=== PATIENT | male | born 1940 | race Caucasian/White ===

== ENCOUNTER 2021-07-15 07:34 | Emergency (ER) | payer OTHER, MEDICARE ==
[~2021-07-15] VITALS: Ht 182.9 cm; Wt 72.6 kg
[2021-07-15 08:37] LABS: ABSOLUTE NEUTROPHILS 3.1 thou/uL (1.4-8.2); BASOPHILS 0.8 % (0.0-2.0); EOSINOPHILS 3.8 % (0.0-3.0); HEMATOCRIT 32.4 % (42.0-52.0); HEMOGLOBIN 10.3 gm/dL (14.0-18.0); LYMPHOCYTES 10.2 % (24.0-44.0); MCH 27.8 pg (26.0-34.0); MCHC 31.9 g/dL (28.0-37.0); MCV 86.9 fL (80.0-100.0); MONOCYTES 8.1 % (1.0-8.0); PLATELET COUNT 146 thou/uL (150-400); POLYS 77.1 % (36.0-66.0); RBC 3.72 mil/uL (4.50-6.00); RDW 14.9 % (10.5-14.5)
[2021-07-15 08:46] LABS: CALCIUM 9.1 mg/dL (8.5-10.1); CREATININE 1.7 mg/dL (0.7-1.3)
[2021-07-15 09:32] LABS: URINE BILIRUBIN NEGATIVE (Negative); URINE BLOOD NEGATIVE (Negative); URINE CLARITY CLEAR; URINE COLOR YELLOW; URINE GLUCOSE-RANDOM* NEGATIVE (Negative); URINE KETONES TRACE (Negative); URINE LEUKOCYTES-REFLEX NEGATIVE (Negative); URINE NITRITE-REFLEX NEGATIVE (Negative); URINE PROTEIN (DIPSTICK) NEGATIVE (Negative); URINE SPECIFIC GRAVITY >= 1.030 (1.005-1.035)
[2021-07-15 11:41] VITALS: BP 132/79
--- NOTE | 2021-07-15 15:46 | EKG ---
[place] [address] [facility] [place] [address] ELECTROCARDIOGRAM REPORT Name: JOANNA SONG Room #: DEP Odin#: [id number] Admission: 07/15/21 Attend Phys: Discharge: 07/15/21 Date of : 44 Report #: [id number] [facility] ED Test Date: 2021-07-15 Test Time: 07:53:28 Pat Name: JOANNA SONG Department: Room: Gender: M Finish Sander: JAM : 1940 Requested By: Eleanor Conte Order Number: [id number] MD: Sean Morton Measurements Intervals [place] Rate: 80 P: 0 ME: 158 QRS: 177 QRSD: 181 T: 72 QT: 454 QTc: 524 Interpretive Statements Ventricular-paced rhythm No further analysis attempted due to paced rhythm No previous ECG available for comparison Electronically Signed On 07-15-2021 15:46:01 CDT by Sean Morton [email or web address] <ELECTRONICALLY SIGNED> By: Sean Morton MD, [facility] 07/15/21 1546 [id number] Sean Morton MD, FACC /EPI
== END 2021-07-15 11:45 ==
LOC: ER 07:34
PROVIDERS: Emergency Medicine
DX: F03.91 Unspecified dementia, unspecified severity, with behavioral disturbance (principal); Z20.822 Contact with and (suspected) exposure to COVID-19

== ENCOUNTER 2021-07-15 12:24 | Inpatient (IN) | payer OTHER, MEDICARE ==
[~2021-07-15] VITALS: Ht 167.6 cm; Wt 70.3 kg
[2021-07-15 13:08] VITALS: BP 136/72
[2021-07-15 13:13] LABS: CHOLESTEROL 132 mg/dL (<200); HDL CHOLESTEROL 30 mg/dL (>40); LDL CHOLESTEROL 77 mg/dL (<100); TC:HDL 4.4 Ratio (Not establshd); TRIGLYCERIDE 128 mg/dL (<150); VLDL 26 mg/dL (<40)
--- NOTE | 2021-07-15 14:02 | NUR ---
NEW ADMISSION HERE FROM [facility], PATIENT WAS AGGRESSSIVE TO STAFF. HITTING, KICKING BREAKING FURNITURE, I TALKED WITH PATIENTS NAPOLEON WHO IS THE DPOA. SHE STATES PATIENT HAS BEEN AGGRESSIVE WAS DIAGNOSED WITH DEMENTIA 6 YEARS AGO. 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 PATIENTS STATES PATIENT HAS BEEN AT THE FACILTY FOR 3 MONTHS. SHE STATES HE WAS ON HOSPICE AT THE FACILITY. PATIENT HAS CARDIAC ISSUES HE HAS A PACEMAKER AND DEFIBULATOR. HE ALSO HAS STAGE 3 KIDNEY DISEASE; WHEN TRYING TO PUT PATIENT BRACELETS ON HE BECAME AGGRESSIVE. DR FARFAN ASSISTED ME HOLDING PATIENTS ARMS. PATIENT UNABLE TO TELL ME ABOUT SI/HI/AH/VH AT PRESENT DUE TO DEMENTIA. PATIENTS LUNGS CLEAR PATIENTS ABDOMEN SOFT BOWEL SOUNDS PRESENT. PATIENT ALERT TO SELF ONLY I HAD TO CALL HIS FOR MY ADMISSION QUESTIONS. WILL CONTINUE TO MONITOR PATIENT FOR SAFETY AND BEHAVIORS.
[2021-07-15 19:29] VITALS: BP 133/78
[2021-07-15 21:34] VITALS: BP 133/78
[2021-07-15 23:06] LABS: GLYCOHEMOGLOBIN (HGB A1C) 5.8 % (4.8-5.6)
--- NOTE | 2021-07-16 03:45 | NUR ---
PATIENT CARE WAS RESUMED AT 1900. HE IS ALERT AND WAS SITTING IN THE DININIG AREAS. HE IS ABLE TO VERBALIZE NEEDS. BS ACTIVE X4 QUAD. HE IS CONTININET OF BLADDER. LUNGS ARE CLEAR BS ACTIVE X4 QUAD. HE DENIES PAINS.AVH/SI/HI. MODERATE ASSIT WITH CARE. HE AMBULATES. [id number] CHECHS IS ONGOING AT THIS TIME.BED IS LOW, LOCKED AND ALARMED. CONTINUE CARE AND MONITR
[2021-07-16 06:19] LABS: HEMATOCRIT 31.2 % (42.0-52.0); HEMOGLOBIN 10.3 gm/dL (14.0-18.0); MCH 28.6 pg (26.0-34.0); MCV 86.8 fL (80.0-100.0); RBC 3.59 mil/uL (4.50-6.00); RDW 15.2 % (10.5-14.5); WBC 4.2 thou/uL (4.0-11.0)
[2021-07-16 06:47] LABS: CALCIUM 8.7 mg/dL (8.5-10.1); CREATININE 1.1 mg/dL (0.7-1.3); MAGNESIUM 2.2 mg/dL (1.8-2.4); POTASSIUM 3.8 mmol/L (3.5-5.1)
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
[2021-07-16 11:05] VITALS: BP 147/90
[2021-07-16 11:09] VITALS: BP 147/90
--- NOTE | 2021-07-16 13:00 | NUR ---
RESUMMED CARE FROM OVERNIGHT SHIFT THIS AM, PATIENT SITTING IN DAY ROOM QUIET. PATIENT ATE BREAKFAST TOOK MEDIATION WITHOUT INCIDENCE. PATIENT ALERT TO SELF ONLY, PATIENT UNABLE TO TO TELL ME ABOUT SI/HI/AH/VH AT PRESENT DUE TO COGNITIVE DISORDER. PATIENTS ABDOMEN SOFT BOWEL SOUNDS PRESENT, PATIENTS LUNGS CLEAR. PATIENT LATER IN THE AM STARTED YELLING BANGING ON THE TABLE NOT ABLE TO BE REDIRECTED. DR FARFAN ORDERED HALDOL 5 MG IM, ATIVAN 2 MG IM TO HELP PATIENT TO CALM DOWN. PATIENT CALMED DOWN SLEEPING IN DAY ROOM IN LIANA CHAIR. WILL CONTINUE TO MONITOR PATIENT FOR SAFETY AND BEHAVIORS.
[2021-07-16 19:53] VITALS: BP 114/71
--- NOTE | 2021-07-17 03:18 | NUR ---
PATIENT HAS A GOOD EVENING. HE IS AAOX1. HE WAS ABLE TO TAKE HIS MEDICATIONS. DURING THIS SHIFT HE HAS NOT EXHIBITED ANY AGGRESSION. ALL SAFETY PRECAUTIONS ARE IN PLACE. HE SLEPT MOST OF THE NIGHT IN HIS OWN ROOM. DENIES PAIN. VSS. WILL CONTINUE TO MONITOR.
[2021-07-17 07:32] VITALS: BP 113/61
[2021-07-17 07:46] VITALS: BP 113/61
--- NOTE | 2021-07-17 11:39 | NUR ---
PATIENT CARE ASSUMED AT 0700 - IN ROOM SLEEPING WHEN ARRIVING ON UNIT. ATTEMPTED TO AWAKEN AND RESISTIVE. DID TAKE MEDICATIONS WHOLE WITH WATER WHEN ADMINISTERED. REFUSED TO GET UP FOR BREAKFAST - STILL SLEEPING AT 11:45. RESPONDS WITH NOD WHEN ADDRESSING HIM. WILL CONTINUE TO MON ITOR AND ENCOURAGE TO GET UP FOR MEALS. ADVISED DR. GOINS OF PATIENT STATUS. VITALS WERE STABLE AND WITHIN NORM WHEN TAKEN THIS MORNING.
--- NOTE | 2021-07-17 11:50 | NUR ---
11:00AM - Phone call to [facility], Celina Michael - Mrs. Michael provided information pertaining to pt. Mrs. Michael indicated pt. does not have a hx of alcohol use, substance abuse or violence. Pt. has a sister who resides in [place], [place]. The two are close and the sister has visited with the pt. several times while in the facility. The pt. has 4 children and 8 grandchildren. The children and grandchildren are also supportive of the pt. The pt. graduated from high school and has a BS from [employer]. 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 The pt. was active in congregation and identifies as Worship. The pt. was in the [employer] during [place]. He was called to duty to [place]. Mrs. Michael is hoping the pt's aggression towards staff will be addressed in order for the pt. to be able to return to [facility]. Mrs. Michael states not seeing this aggression directed towards her. However, she is aware that the pt. would not allow staff to clean or feed him. Mrs. Michael expressed concerns that the pt's aggression will not be able to be addressed through medication which will result in the pt. not being able to return to [facility] care.
--- NOTE | 2021-07-17 14:03 | NUR ---
PATIENT CARE ASSUMED AT 0700 - SLEPT THROUGH BREAKFAST AND LUNCH. AWOKE AND AMBULATED TO DINING AREA. WAS CALM AND REDIRECTABLE - ATE LUNCH WE HAD PUT ASIDE INDEPENDENTLY. COMPLETED 50 PERCENT OF THE MEAL. PATIENT HAS BEEN SITTING QUIETLY IN DINING AREA. PATIENT DID TAKE MORNING MEDICATIONS AT BEDSIE WHEN APPROACHED. HAS NO DIFFICULTY SWALLOWING WHOLE WITH WATER. ALERT TO SELF. DOES NOT RESPOND TO MANY QUESTIONS ADDRESSED TO HIM. WILL CONTINUE TO MONITOR PATIENT FOR SAFETY AND ADDRESS ANY CONCERNS OR CHANGES IN BEHAVIOR.
--- NOTE | 2021-07-17 15:04 | NUR ---
In-person with pt. Pt. had food but did not eat much of it. The pt. was able to tell the SW that he was born and raised in [place], [place]. When asked what types of things he likes to do, the pt. responded that he did not know. The pt. seemed to be confused. The pt. was pleasant when speaking to the SW.
[2021-07-17 20:17] VITALS: BP 122/77
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
--- NOTE | 2021-07-18 03:26 | NUR ---
DURING THIS SHIFT PATIENT HAS BEEN CALM AND COOPERATIVE. HE TOOK HIS MEDICATION ORDERED. HE IS AAOX2. SAT QUIETLY IN THE COMMON AREA FOR A BIT AND WATCHED TV. SLEPT WELL THROUGHOUT THE EVENING. DENIED PAIN OR NEEDS. NO S/S OF DISTRESS NOTED. WILL CONTINUE TO MONITOR.
[2021-07-18 10:44] VITALS: BP 143/87
--- NOTE | 2021-07-18 12:48 | NUR ---
HAS BEEN VISIBLE ON UNIT SITTING QUIETLY IN DAYROOM-GAIT STEADY WITHOUT Assisitve devices. WAS INCONTINET OF SMALL AMOUNT OF BM-COOPERATIVE WITH ALLOWING STAFF TO COMPLETE PERINEAL CARE WITHOUT PHYSICAL RESISTANCE
--- NOTE | 2021-07-18 15:54 | NUR ---
CONTINUES QUIET AND COOPERATIVE-COMPLIENT WITH TAKING SCHEDULE MEDICATIONS-ABLE TO VERBALIZE NEEDS TO NURSING STAFF IN AN APPROPRIATE MANNER
[2021-07-18 19:50] VITALS: BP 134/71
[2021-07-18 21:00] VITALS: BP 134/71
[2021-07-19 05:05] VITALS: BP 134/71
--- NOTE | 2021-07-19 05:09 | NUR ---
PATIENT CARE CARE RESUMED [id number]. HE IS ALERT AND WA SITTING A THE [place] AREA. HE IS CONTINENT OF BOWEL AND BLADDER. DENIES PAINS AND SBS ACTIVE X4 QUADS. HE IS ABLE TO VERBALISE HIS CONCERN. Q12 MINUTES CHECK IN PLACE. HE REFUSED HIS ,MED AND PRN WAS GIVEN AND NURSE. DENIES PAINS/SI/AVH AND HI TO INDIVIDUAL WAS NOTED. HE WAS AGRESSIVE AND ANXIOUS THIS SHIFT. CONTINUE CARE AND MONITOR. . YELLOW SOCKS ON. CONT CARE
[2021-07-19 09:37] VITALS: BP 149/68
--- NOTE | 2021-07-19 13:25 | NUR ---
Alert and orientated to name only. Confused speech. Denies SI/HI. Ambulates with regular, steady gait. Calm and cooperative. Breath sounds clear. Reg HR auscultated. Color pink with brisk capillary refill and palpable peripheral pulses. Independent with voiding. Active bowel sounds over soft, flat abdomen. Currently participating in group without s/o distress.
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
[2021-07-19 15:37] VITALS: BP 110/68
[2021-07-19 16:40] VITALS: BP 120/72
[2021-07-19 19:00] VITALS: BP 119/74
[2021-07-19 20:00] VITALS: BP 119/74
--- NOTE | 2021-07-20 03:20 | NUR ---
PATIENT CARE WAS RESUME AT 1900 HE IS AWAKE AND ABLE TO VERBALIZE SOME NEEDS. HE DENIES PAINS AND HE IS CONTINENT OF BOWEL AND BLADDER. TOOK HIS MEDS WHOLE AND CT SCAN WAS DONE NO NEW OR ACUTE FINDINGS NOTED. HE IS SLEEPING IN BED AT THIS TIME. BED IS LOW, LOCKED AND ALARMED. [id number] CHECKS ONGOING CONTINUE CARE
[2021-07-20 09:39] VITALS: BP 140/86
--- NOTE | 2021-07-20 15:11 | NUR ---
Alert and orientated to name and knows he is in [place]. Calm, cooperative and compliant with meds. Denies SI/HI. Breath sounds clear. Reg HR auscultated. Color pink with brisk capillary refill and palpable peripheral pulses. No edema noted. Incontinent of yellow urine. Active bowel sounds over soft, flat abdomen. Small laceration in R eyebrow healing w/o s/o infection. Ambulating in unit with slow, steady gait. Offering walker, compliant at times. Shower done and hair shampooed. called for update, appropriate questions and concerns.
[2021-07-20 19:52] VITALS: BP 140/82
--- NOTE | 2021-07-21 03:23 | NUR ---
07-20-21 CARE TRANSFERRED 1900 OBSERVED PT SITTING IN DAY ROOM ON COUCH. LATER PT AAOX1, VSS, RR EVEN AND NONLABORED ON RA. PT DENIES SI/HI AND PAIN. PT PRESENTS CALM AND COOPERATIVE. DURING MEDICATION ADMIN PT HAD NO DIFFICULTIES TAKING PILLS WHOLE WITH WATER. LATER PT ASSISTED TO BATHROOM AND BED, BED WAS ADJUSTED FOR COMFORT. PT REMAINED CALM DURING CARES. PT WILL BE CONTINUE MONIOTR PER [facility] PROTOCOL.
[2021-07-21 11:05] VITALS: BP 121/58
--- NOTE | 2021-07-21 15:29 | NUR ---
PATIENT HAS BEEN UP, AND OUT ON THE UNIT, AMBULATE WITH ASSIST OF STANDARD WALKER, GAIT SLIGHTLY UNSTEADY. PATIENT IS ALERT, AND ORIENTED X 1, HE IS FORGETFUL, AND VERY CONFUSED. PATIENT TOOK ALL MEDICATION WHOLE IN PUDDING WITHOUT DIFFICULTY. PATIENT REQUIRES STAFF ASSIST/CUE WITH FEEDING, APPETITE GOOD, EAST 50%-76%MEALS. PATIENT SITS IN GROUP, NO CLUE OF WHAT IS GOING ON. PATIENT DENIES SUICIDAL IDEATION, NOT ABLE TO APPROPRIATELY RESPOND TO FURTHER ASSESSMENT QUESTIONS DUE TO COGNITIVE IMPAIRMENT, NO SIGN OF PHYSICAL PAIN NOTED AT THIS TIME. AFFECT IS FLAT, MOOD IS EUTHYMIC. NO SIGN OF ACUTE DISTRESS NOTED AT THIS TIME, FALL PRECAUTIONS IN, WILL MONITOR FOR SAFETY.
--- NOTE | 2021-07-21 15:32 | NUR ---
07-21-2021--1500--Call returned to [facility] ([phone]) to Sarah. She requested updated information for patient. Faxed notes from carleen and physician to her at [phone].
[2021-07-21 19:20] VITALS: BP 122/82
--- NOTE | 2021-07-22 04:49 | NUR ---
07-21-21 CARE TRANSFERRED 1900 OBSERVED PT SITTING IN DAY ROOM. LATER PT AAOX1, VSS, RR EVEN AND NONLABORED ON RA. PT DENIES SI/HI AND PAIN AND OBSERVED NO BEHAVIORS. PT HAS BEEN CALM AND COOPERATIVE DURING CARES. DURING MEDICATION ADMIN PT HAD NO DIFFICULTIES TAKING WHOLE WITH WATER, PT DRANK 480ML. PT BED WAS ADJUSTED FOR COMFORT, BED LOCKED, LOW, AND ALARM SET. PT WILL CONTINUE TO BE MONITOR PER [facility] PROTOCOL.
[2021-07-22 05:35] LABS: HEMATOCRIT 30.6 % (42.0-52.0); MCH 28.5 pg (26.0-34.0); MCHC 32.8 g/dL (28.0-37.0); RBC 3.51 mil/uL (4.50-6.00); RDW 14.9 % (10.5-14.5); WBC 3.1 thou/uL (4.0-11.0)
[2021-07-22 06:09] LABS: CALCIUM 8.4 mg/dL (8.5-10.1); CREATININE 1.2 mg/dL (0.7-1.3); POTASSIUM 3.7 mmol/L (3.5-5.1)
--- NOTE | 2021-07-22 12:05 | NUR ---
RT Progress Note- Raffaele has been present in the milieu each day since his admission. He has also been present in the majority of recreation therapy groups though his participation has been minimal d/t poor attention and cognitive functioning. Raffaele wanders throughout the day room and hallways and has little insight to programming occurence. He is friendly overall and is observed to sit with patients and speak with them, often comforting them if he percieves them to be upset. He has not shown aggression during interaction with RT team thus far. AUTO POLISHER will encourage continued participation and improved presence in group.
[2021-07-22 15:57] VITALS: BP 125/80
[2021-07-22 15:58] VITALS: BP 125/80
[2021-07-22 15:59] VITALS: BP 125/80
--- NOTE | 2021-07-22 16:20 | NUR ---
Patient care resummed, patient up and in the dayroom in [place] relaxed next to a fellow patient. Patient presented to SUPPLY CHAIN COORDINATOR A&0*1 (self), abdomen is soft with bowel sounds present, lung sounds are clear but slightly diminished. Patient has bruising to the Right eye from a fall a few days prior, alongside a 0.5cm laceration on the Right eyebrow and bruising to the nose. Patient refused all morning medications after 2 attempts from SUPPLY CHAIN COORDINATOR. A forced IM was given per Orders. Pt was medication compliant for the rest of the day. Pt was irritable and angry this morning but has then calmed down. Patient has been in the dayroom particapting in groups and meals without complications. Will continue to monitior patient for safety and behaviors. Fall preventions are in place at this time.
[2021-07-22 19:54] VITALS: BP 144/120
--- NOTE | 2021-07-22 22:44 | NUR ---
Assumed care on 07/22/21 @ 1900, in bed, awake alert and oriented x1 to self only. Cooperative with assessment and compliant with medications, taking meds whole with water. VSS HRRR, Lungs CTA, ABD N x 4q over a soft round abdomen. High fall risk, fall precautions in place, chair alarm in place when up and bed alarm on when in bed, bed in low position. Denies SI, does not respond to remainder of mental health questions. Will continue to monitor for comfort and safety as per unit protocol.
--- NOTE | 2021-07-23 09:21 | NUR ---
07-23-2021--08--Call from Sarah from patient's facility. I had faxed updates last night to her but wrong number was given to me ([phone]). New number provided in message ([phone]). I refaxed updates and got a form stating "no response". Will try again later today.
[2021-07-23 10:22] VITALS: BP 105/61
--- NOTE | 2021-07-23 11:02 | NUR ---
PATIENT CARE ASSUMED AT 0700, PATIENT IN BED SLEEPING, PATIENT WET THE BED WITH URINE, GOT HIM CLEAN UP AND READY FOR BREAKEAT, HE TOOK MEDICATION WHOLE, CALM WITH AND PLEASANT WITH CARE, ACTIVE BOWEL SOUND WITH SOFT, BREATH SOUND CLEAR, NO EDEMA NOTED, PATIENT IS INCONTINENT OF BLADDER AND BOWEL, HE ABULATE WITH A WALKER, PATIENT IS ALERT AND ORIENTED TO SELF, FALL PRECAUTION IN PLACE, NO BEHAVIOR CHANGE FOR NOW AND NO SI/HI OBSEVERED. WILL CONTINUE TO MONITOR PATIENT FOR SAFETY AND BEHAVIOR
--- NOTE | 2021-07-23 14:24 | NUR ---
07-23-2021--1400--Call from Val Beth (patient's daughter--[phone]) stating that her mother was having difficulty getting information on her . She states she called the RN this AM and left her number and no one has called her back. I talked to the RN who states she has been gone for a week and wasn't familiar with the patient and so she was waiting to see him today to call back. I asked that next time she can maybe let me know or Jesika so we can fill her in or we can call the family member. The daughter also said that [facility] had asked for information or an update on the patient. I explained that I tried four different toimes to different numbers and my fax sheet stated no response which meant the fax wasn't on or they were all wrong numbers. I told her I would call Sarah from [facility] and try to get a good number for the fax. I gave her the little information available from team meeting. I also called her after group afternoon and gave her an update on his participation which was very good. (See group note).
--- NOTE | 2021-07-23 14:32 | NUR ---
07-23-2021--1430--Message left by Mrs. Gaviota Michael with her phone stephanie ([phone]). I returned her call. She states she talked to Gayatri who called the back. Gaviota states she had a difficult time understandong her due to her accent. I advised her oif this happens again to call me an OI will get the information or I will have Jesika (DON) call if it's information I can't explain due to not being a nurse or doctor. She was very appreciative. I told her to call if she had any concerns. She stated she was concerned that he had gotten shots because [facility] won't give shots so they won't take him back. I told her he would be changed to oral meds if possible and won't leave needoing shots.
[2021-07-23 20:29] VITALS: BP 122/74
--- NOTE | 2021-07-23 23:18 | NUR ---
At onset of pool cleaner pt was pacing on the unit. Pt was found sitting in a peer's room while the peer was resting in bed. Pt was redirected out of the room. Pt was compliant with PO medication. Pt has very dry legs and was scratching his legs and making them bleed. RN applied lotion and bandaids to bilateral lower legs. Pt was cooperative and appreciative of this. Later in the evening pt started wandering more and pushed a chair completely around the unit. Pt placed this chair near the unit exit. Pt attempted to push the exit open several times. When told the door was locked and asked to stop, pt responded irritably. Pt would not redirect and pt started to push the door harder. RN adminstered 7.5mg IM Zyprexa at approx 2210. After injection pt was able to calm down. Pt's speech was nonsensical at times. Pt was alert and oriented only to self. Pt could not state the date or where he is at. Pt was focused on finding something on the unit, but was unable to voice what he was looking for. Fall precautions are in place for pt, but pt ambulates independently and often times is not organized enough to remember to use a walker. Will continue to monitor.
[2021-07-24 10:16] VITALS: BP 107/75
--- NOTE | 2021-07-24 10:28 | NUR ---
07-24-2021--1030--Stopped to talk to patient in the day room this AM. Patient was having difficulty "making word sense" even when asking "How are you?". I let him talk for a few minutes about nothing. Will attempt conversation later in the day. 07-24-2021--1044--Call to Gaviota Michael, patient's . She stated most of her questions were answered yesterday. She stated she was most concerned about whether he had any "breakdowns" or agitation when she spoke to the RN. I told her I had seen him this AM in groups and he participated. I explained what the format was for the weekends as she wanted to know if he would have groups this weekend. I told her she was welcome to call back and talk to the RN for infomation or she could call me later if needbe for additional information. sounds particularly "fragile" and close to tears when one talks to her. Added time may need to be taken by staff when she calls for information. I will attempt to call her daily (when I am working) to determine if she has gotten the information she is seeking.
--- NOTE | 2021-07-24 10:42 | NUR ---
PATIENT CARE ASSUMED AM, PATIENT STILL IN BED SLEEPING, GOT PATIENT UP DUE TO INCONTINENT SLEEPING ON HIS URINE, GOT HIM CLEARED UP, ALERT TO SELF ONLY, CALM WITH TREATMENT, BOWEL SOUND ACTIVE WITH SOFT ABDOMEN, SKIN INTACT, NO EDEMA NOTED, BREATH SOUND CLEAR, PATIENT IS CONFUSED AND NEED HELP TO SET UP BREAKFAST, TOOK MEDICATION WHOLE WITH OATMEAL, PACES SOMETIMES IN THE VANN WAY AND COMMON AREA, NO SI/HI OBSERVED, NOT ABLE TO VEBERLIZE NEED, FALL PRECAUTION IN PLACE. PATIENT IS INCONTINENT, AMBULATE WITH WALKER. WILL CONTINUE TO MONITOR PATIENT FOR SAFETY AND BEHAVIOR.
[2021-07-24 19:23] VITALS: BP 112/57
--- NOTE | 2021-07-25 00:21 | NUR ---
At onset of shift pt was sitting in the day room, sitting at a table with staff. This shift pt was calm and pleasant when seated with staff. Pt was pleasant and cooperative with RN completeing the assessment and auscultating lungs, heart and abdomen. When RN came back to pt to offer him his medication crushed in pudding, pt told RN to "get back, no, no, no." RN offered pt his medication in pill form with water and pt again refused. RN explained to pt that he would need an injection if he refused his pills. Pt received 7.5mg Zyprexa IM. Staff had to hold patient still and pt yelled. Pt smiled and laughed after the injection, told staff that he was going to fabian them. Pt was then helped into bed. Fall precautions are in place. Will continue to monitor.
[2021-07-25 06:54] VITALS: BP 133/80
--- NOTE | 2021-07-25 11:41 | NUR ---
CARE ASSUMED AT 0700, PATIENT SITTING ON A CHAIR IN THE COMMON AREA, ALERT TO SELF ONLY, TOOK MEDICATION WHOLE, CALM THIS MORNING, ACTIVE BOWEL SOUND WITH SOFT AND ROUNDED ABDOMEN, BREATH SOUND CLEAR, REGULAR HR AUSCULTATED, COLOR PINK WITH BRISK CAPILLARY REFILL AND PAIPABLE PERIPHERAL PULSES, NO EDEMA NOTED, PACE IN THE DAY ROOM, TRY PUSHING CHAIRS AROUND BUT ABLE TO BE REDIRECTED, PATIENT AMBULATE ON A WALKER AND HE IS INCONTINENT AT NIGHT. NO SI/HI BEHAVIOR OBSERVED, FALL PRECAUTION IN PLACE
--- NOTE | 2021-07-26 03:02 | NUR ---
PATIENT CARE WAS RESUMED AT 1900. HE WAS IN THE DINING AREA. AMBULATES WITH WALKER. MODERATE ASSIST WITH CARE. HE IS CONTINIET OF BOWEL AND BLADDER. LUNGS ARE CLEAR BS ACTIVE X4 QUADS. HE TOOK HIS MEDS WHLOE AND DENIES ANY SI/AVH/HI. HE IS ON FALL PRECAUTION AND YELLOW SOCKS AND TOP ON. BED IS LOW, LOCKED AND ALARMED.
[2021-07-26 09:55] VITALS: BP 99/60
--- NOTE | 2021-07-26 13:55 | NUR ---
07-26-2021--1400--Call and msg left from patients facility. She left her number and I attempted to call her back. She state that they hadn't received the fax of updates I sent over the weekend. I resent updates this date.
--- NOTE | 2021-07-26 16:43 | NUR ---
Assumed pt care at 0700. pT was oriented to himself alone. Assessments completed,vss. Lungs clear, active bowel sound. Pt was confused and forgetful due to dementia. No sign of si/hi noted. No c/o pain at this time. Ambulates with a walker, pt often forgets to use his walker. Took his meds whole, no difficulty noted. Pt is a fall risk, fall precaution in place. incontinent of bladder x2 this shift. 1520 pt was agitated and and combative with staffs. pt was redirected and he continued to get aggressive. Pt started grabbing things off med cart. Pt was redirected and pt immediately grabbed staffs upper and was pushing staff towards the wall. Other staff assisted in redirecting pt and also trying to stop him from hurting staff. Pt proceeded in grabbing and pulled staff ear, reaping staffs earing out and scratch tara on staff. DR Lenz was notified. 1540 20mg IM Geodon was ordered and administered. At this time pt is in the day room eating dinner. WIll continue to monitor.
[2021-07-26 20:10] VITALS: BP 104/54
--- NOTE | 2021-07-26 21:13 | NUR ---
Assumed care on 07/26/21 @ 1900, reclined in a rebeka chair in the day room, with chair alarm in place. A&Ox1 to self only. Ambulates with assist x1 and a walker. VSS Heart RRR, lungs CTA, ABD n x4Q. Took meds whole with water and retired @ HS. On fall precautions, bed in low position, bed alarm set, will continue to monitor as per unit protocol for patient safety and comfort.
--- NOTE | 2021-07-26 21:28 | NUR ---
Spoke to and filled her in on his day. Celina [phone]
--- NOTE | 2021-07-27 16:18 | NUR ---
Assumed pt care at 0700. pt was alert and oriented to person. Assessments completed, vss. Lungs clear, active bowel sounds. Denies si/hi. Denies pain at this time. Took meds whole, no difficulty noted ambulates with a steady gait. Continent of bowel and bladder. 1400 Pt was irritable, pt was redirected. Pt is a Fall risk. Fall precaution in place. At this time pt is in the day room. Will continue to monitor
--- NOTE | 2021-07-28 03:41 | NUR ---
ASSUMED CARE ON 07/27/21 @ 1900, UP AMBULATING OFTEN WITHOUT HIS WALKER. HANDLING THE COMPUTER AND BECOMMING AGITATED WHEN REDIRECTED AWAY FROM COMPUTER AND PEERS. TOOK MEDS CRUSHED IN PUDDING, TYLENOL 650 PROVIDED FOR LOWER EXTREMITY PAIN, CONTINUES TO AMBULATE AND STAYS AWAKE UNTIL ABOUT 2300, RETIRES TO BED, AND HAS SLEPT FROM THAT TIME UP UNTIL THIS WITING. WILL CONTIUE TO MONITOR FOR COMFORT AND SAFETY PER UNIT PROTOCOL.
--- NOTE | 2021-07-28 07:25 | NUR ---
06-27-2021--699--Saw and spoke to patient today in the dayroom. He was confused and states he has been looking for his . I told him we might be able to call her later. He was agreeable to this
[2021-07-28 10:45] VITALS: BP 126/74
--- NOTE | 2021-07-28 15:30 | NUR ---
COMPLIENT WITH TAKING PO MEDICATIONSAND AM PHYSICAL ASSESSMENT. DENIES C.O PAIN/DISCOMFORT. GAIT STEADY WITHOUT ASSISTIVE DEVICES-VISIBLE IN DAYROOM INTERACTING WITH PEERS-DOES NEED REMINDERS TO NOT BE INTRUSIVE WITH PEERS TENDS YO BE CARETAKING OF OTHERS. ORIENTED TO NAME ONLY-APPETITE POOR. WILL OCCASSIONALLY WANDER INTO OTHERS ROOMS BUT ESILY REDIRECTED.
--- NOTE | 2021-07-28 19:30 | NUR ---
ABRUPTLY BECAME COMBATIVE WITH BEAUTICIAN APPRENTICE IN DAYROOM WHEN SHE ASKED HIM TO STOP TOUCHING OTHER PATIENTS HE WAS TRYING TO ASSIST A PEER TO STAND UP WHE HAD BEEN YELLING OUT FOR HELP. SWINGING WITH CLOSED FIST AT STAFF WHO RAN TO DAYROOM TO ASSIST-YELLING BUT CONVERSATION FRAGMENTED AND INCOHERENT-SECURITY CONTACTED AND OLANZAPNE 7.5MG GIVEN IM IN LEFT DELTOID-VERY COMBATIVE WITH SECURITY GUARDS AND REQUIRED CONSTANT OBSERVATION,REDIRECTION AND SECURITY STANDING AT DOOR FOR 5-10 MINUTES BEFORE NOT STRKING OUT
[2021-07-28 19:43] VITALS: BP 134/77
--- NOTE | 2021-07-29 02:45 | NUR ---
At onset of second operator pt was walking around the day room. This shift pt was alert and oriented only to self. Pt spent free time moving furniture around the day room. Pt was pleasant, but restless. Pt was intrusive with peers and patted a peer on the head playfully. Pt was compliant with vital signs and medications. Recieved PRN trazodone before bed and was helped to bed by staff. Pt did not answer questions appropriately. Pt was tangential and nonsensical at times. Pt is a high fall risk. Fall precautions are in place. Will continue to monitor.
[2021-07-29 09:36] VITALS: BP 111/85
--- NOTE | 2021-07-29 10:41 | NUR ---
RT Progress Note- Raffaele has shown no level of change in his participation level since his last progress note. He continues to be present in the milieu and occasionally active in recreation therapy groups when not wandering the unit. BELL CAPTAIN will continue to encourage progress and participation.
--- NOTE | 2021-07-29 12:17 | NUR ---
HAS APPEARED RESTLESS,IRRITABLE THROUGHOUT AM-PACING INTHE HALLWAYS-POUNDING ON EXIT DOORS-INTRUSIVE WITH PEERS AND BECOMES AGITATED WITH NURSING STAFF WHEN THEY TRY TO REDIRECT HIM. GAIT IS STEADY WITHOUT ASSISITVE DEVICES-CONVERSATION FRAGMENTED,OFTEN TIMES INCOHERENT-DID TAKE AM MEDICATIONS RELUCTANTLY BUT NO NOTED DECREASE IN ANXIETY/AGITATION AFTER MED ADMINISTRATION-BY LUNCHTIME WAS STRIKING OUT AT CRIME LAB TECHNICIAN IN DAYROOM WHEN TRIED TO PULL HIS PANTS UP-ZYPREXA 7.5MG GIVEN IM IN LEFT DELTOID-
[2021-07-29 22:37] VITALS: BP 111/85
--- NOTE | 2021-07-30 05:28 | NUR ---
Raffaele was alert and oriented to self only this shift. At the start of shift pt was resting quietly in his room but shortly after was up wandering the unit. He ate a snack and sat quietly in the dayroom. Pt received PRN trazodone at 2032 to help pt sleep and did not have any other scheduled medications. Pt stayed up wandering the unit and at times was noted wandering into other pt's rooms, but was easily redirectable. Staff offered pt a word search but pt was not interested. Pt was then walked to his room and tucked into bed and was able to fall asleep. Pt did not get up throughout the night and is still currently resting in bed. Will continue to monitor.
[2021-07-30 07:05] VITALS: BP 125/77
[2021-07-30 10:44] VITALS: BP 125/77
--- NOTE | 2021-07-30 11:56 | NUR ---
Resummed care from overnight shift this am. Client was in activity area eating breakfast. Appetite presented fair this morning, with 70 % of breakfast eaten. When asked orientation questions, client was oriented to person only, and was not aware of where he was, or the time and year. Client presented pleasant and calm while eating. Medications were taken within complaint this morning, though client was not receptive to pt teaching. When asked about depression and anxiety, client voiced no, shaking his head while stating the word. When asked about homicidal and suicidal ideation, client also voiced no while shaking his head. When asked about internal stimuli, like audio and visual hallucinations, client did not answer despite repeated promptings. Lung sounds clear; bowel sounds were present. Per client, last BM was this morning. Per Dr. Lenz, 1400 dose of seroquel increased to 250. Acknowledged in NOV, and let pt know of med dose increase. During this shift, pt has been redirected back to his room several times, as pt becomes confused as to which is his room, and where he is. Gait is steady, and pt ambulates well without walker. Walker has been encouraged as precaution, though pt has declined to use one. Currently, pt in bed resting after having been redirected to room. No current concerns.
--- NOTE | 2021-07-30 14:51 | NUR ---
07-30-2021--1400--Family meeting with Celina (, ROMEO) and daughter Val, Dr. Lenz and this worker on the phone. (Daughters number is [phone]). Doctor reviewed progress. Stating still mid-afternoon behaviors () Discussed possibility he has more problems with female RN's than with men. He has had some IM's for behaviors. Doctor will put him on bladder schedule. Doctor stated he would call them again next Monday (08-05-2021) at 2 PM.
[2021-07-30 20:57] VITALS: BP 122/79
--- NOTE | 2021-07-31 05:11 | NUR ---
Assumed care of patient at 1900. Pt was resting in bed with eyes closed at beginning of shift et isolated in room most of shift. AOX3. Denies any pain or discomfort this shift. VSWNL. Ambulation not witnessed this shift. Denies SI/HI/AVH at present time. Currently resting in bed with eyes closed. Will continue to monitor per unit protocol.
[2021-07-31 10:53] VITALS: BP 132/84
[2021-07-31 13:39] VITALS: BP 132/84
--- NOTE | 2021-07-31 17:54 | NUR ---
Resummed care from overnight shift this am. Client was in activity area eating breakfast during this time. Client presented alert to self only, and could not tell staff what day or year it was, in addition to being unable to tell staff where he was. When asked about depression and anxiety, client denied both. Client stated that he did not have any visual or audio hallucinations when asked, though staff did observe him talking to air, and making gestures with his hands as he was talking. Client denied any suicidal or homicidal intention, stating "no" when asked to both. Client presented with bowel sounds in all quadrants. Lungs clear. Client denied any pain. When presented with medication, client needed to be redirected to take his medication. Client was offered pt education about his medication, and was unable to verbalize back what he took. Client tried to put his medications in his cup of water, and put two cups of water together instead of taking medications. Staff used therapeutic communication at this time to reorient client, and helped client take his medications. Client took medications one by one, with small sips of water in between after further and subsequent prompting. Shortly after breakfast, client became agitated, pushing his side table around unit, and walking quickly. Client refused to ambulate with a walker at this time. Client became more irritable, and started to take further objects from nearby tables and move them. Client was redirected again. Client continued to move objects despite this. When approached, client became irritable, and started to wave hands and arms, yelling as he did so. Client yelled "no" loudly when asked to stop. PRN zyprexa was given at this time due to increasing agitation. Client was reoriented to activity area during this time so that staff could monitor client. Client watched tv and sat in chair during this time, having calmed significantly, and dosed off, sleeping in chair upright. When time came for client 1400 dose of seroquel, dose was pushed to 1445 to monitor client, as he had received his injection closer to 11. Dr. Mcneil made aware. Client refused seroquel during this time, and dose of zypreza prn was given as client started to wave hands, hit staff, and curse. After prn client calmed down, and sat in chair to rest. Client is currently sitting in activity area eating dinner. No further concerns at this time.
[2021-07-31 20:20] VITALS: BP 112/70
--- NOTE | 2021-08-01 05:49 | NUR ---
CARE ASSUMED AT 1900 PATIENT WAS IN BED ASLEEP. NO S/S OF PAIN OR DISTESS NOTED THIS SHIFT.PATIENT IN BED ASLEEP AT THIS TIME BREATHING REGULAR AND UNLABOURED.
[2021-08-01 10:03] VITALS: BP 143/75
--- NOTE | 2021-08-01 11:56 | NUR ---
PATIENT CARE ASSUMED AT 0700, PATIENT SITTING IN THE DAY ROOM, ALERT TO SELF AND CONFUSED, TOOK MEDICATION WHOLE, PATIENT CALM WITH ASSESSMENT WITH CLEAR LUNGS, ACTIVE BOWEL SOUND WITH SOFT ABDOMEN, SKIN INTACT WITH NO EDEMA NOTED, PATIENT IS INCONTINENT OF BLADDER SOMETIMES, AMBULATE WITH A WALKER, PATIENT BECAME AGITATED LATER IN THE DAY AND WILL NOT BE REDIRECTED, TRYING TO HIT STAFF, OLANZAPINE 7.5MG IM GIVEN, PATIENT DENIES SI/HI WHEN ASKED, FALL PRECAUTION IN PLACE, WILL CONTINUE TO MONITOR PATIENT FOR SAFETY AND BEHAVIOR.
--- NOTE | 2021-08-01 12:17 | NUR ---
Reviewed notes to get phone number to fax updates and had seen the notes indicating the fax number was written incorrectly but that another fax number had been given. There was person, Sarah, who had requested the updates and provided the number. Called Sarah at the number provided but there was no answer and voice mailbox was full. CHRIS contacted the pt's who provided the number for Sarah but didn't have a different number to provide. CHRIS contacted the main number for [facility] [place] and left a voice message to get the fax number.
[2021-08-01 19:25] VITALS: BP 136/90
[2021-08-01 19:35] VITALS: BP 136/90
--- NOTE | 2021-08-01 22:31 | NUR ---
Assumed care on 08/01/21 @ 1900, seated in rebeka chair in the day room, cooperative with assessment and compliant with medicaitons. Accepted meds whole in pudding with 4 oz of water. HRRR, Lung sounds cta bilat, ABD n x 4Q. A&Ox1 with confusion noted. Fall precautions in place, chair alarm while seated and bed alarm and bed in low position while in bed. Will continue to monitor for safety and comfort as per unit protocol.
[2021-08-02 10:09] VITALS: BP 132/57
[2021-08-02 10:43] VITALS: BP 132/57
[2021-08-02 12:17] LABS: ABSOLUTE NEUTROPHILS 3.8 thou/uL (1.4-8.2); BASOPHILS 0.6 % (0.0-2.0); EOSINOPHILS 2.2 % (0.0-3.0); HEMATOCRIT 34.6 % (42.0-52.0); HEMOGLOBIN 10.8 gm/dL (14.0-18.0); LYMPHOCYTES 8.1 % (24.0-44.0); MCH 27.7 pg (26.0-34.0); MCHC 31.3 g/dL (28.0-37.0); MCV 88.7 fL (80.0-100.0); MONOCYTES 7.4 % (1.0-8.0); PLATELET COUNT 170 thou/uL (150-400); POLYS 81.7 % (36.0-66.0); RDW 15.6 % (10.5-14.5); WBC 4.7 thou/uL (4.0-11.0)
[2021-08-02 12:23] LABS: CALCIUM 9.2 mg/dL (8.5-10.1); CREATININE 1.2 mg/dL (0.7-1.3); POTASSIUM 4.1 mmol/L (3.5-5.1)
--- NOTE | 2021-08-02 14:12 | NUR ---
08-02-2021--1400--Call returned by Sarah. Fax number is ([phone]). Sent update and med list requested by Sarah from 07-31-2021 through today.
--- NOTE | 2021-08-02 14:50 | NUR ---
08-02-2021--1430--Call from Sarah at [facility] and she provided me with the correct fax number ([phone]). Faxed updated info to facility. through this AM.
--- NOTE | 2021-08-02 16:00 | NUR ---
Pt was alert and oriented to self only this shift. He appeared withdrawn and kept to himself in the dayroom most of the morning. Pt appeared disorganized and confused, and was unable to hold a valuable conversation. Pt had labs and an EKG ordered and required to be held during this as pt was easily combative and tried to bite this RN during lab draw. Pt also was not compliant with standing or walking to his room and required assistance by 2 staff members to go to his room via W/C. Pt was then compliant once in bed and is still in bed resting at this time. He was compliant with AM medication pass. He took pills whole with water with assistance from staff, without difficulty. He required to be woken up for his 1400 seroquel but was not compliant. This was communicated with Dr. Lenz that pt has been drowsy this shift and unable to take his 1400 seroquel; medication changes were pt and seroquel was D/C'd, therefore seroquel was not given. UA to be obtained and will try with urinal this shift. Pt did not voice any physical complaints and appears comfortable at this time, will continue to monitor.
[2021-08-02 18:09] LABS: URINE BILIRUBIN 2+ (Negative); URINE BLOOD NEGATIVE (Negative); URINE CLARITY CLEAR; URINE COLOR YELLOW; URINE GLUCOSE-RANDOM* NEGATIVE (Negative); URINE KETONES 1+ (Negative); URINE LEUKOCYTES-REFLEX NEGATIVE (Negative); URINE NITRITE-REFLEX NEGATIVE (Negative); URINE PROTEIN (DIPSTICK) TRACE (Negative); URINE SPECIFIC GRAVITY >= 1.030 (1.005-1.035)
[2021-08-02 18:11] LABS: ICTOTEST (BILI CONFIRMATORY) Negative (Negative)
[2021-08-02 19:17] VITALS: BP 126/58
--- NOTE | 2021-08-03 04:57 | NUR ---
Assumed pt's care beginning of this pm shift. Pt oriented to self. Confused. Forgetful. Denies SI/HI. Pt was cooperative with care. Can require redirecting. No agitation or agression noted. Took meds whole without difficulties. Pt currently in his room sleeping. Q12 mins roundings for safety. Nursing to continue to monitor.
--- NOTE | 2021-08-03 07:59 | EKG ---
[place] [address] [facility] [place] [address] ELECTROCARDIOGRAM REPORT Name: JOANNA SONG Renetta Room #: [facility] ADM IN .R.#: [id number] Admission: 07/15/21 Attend Phys: Mingo Lenz DO Discharge: Date of : 44 Report #: [id number] [facility] Test Date: 2021-08-02 Test Time: 13:08:18 Pat Name: JOANNA SONG Department: Room: 520[facility] Gender: M Utilization Management Um Nurse: ARMIDA : 1940 Requested By: Mingo Lenz Order Number: [id number] MD: Sean Morton Measurements Intervals [place] Rate: 83 P: 84 UT: 59 QRS: 112 QRSD: 159 T: -81 QT: 462 QTc: 543 Interpretive Statements Ventricular-paced complexes No further analysis attempted due to paced rhythm Compared to ECG 07/15/2021 07:53:28 No significant changes Electronically Signed On 08-03-2021 7:58:38 RESEARCH QUALITY ASSURANCE SPECIALIST by Sean Morton [email or web address] <ELECTRONICALLY SIGNED> By: Sean Morton MD, [facility] 08/03/21 0758 1308 1308 Sean Morton MD, FACC /EPI
[2021-08-03 09:54] VITALS: BP 151/92
[2021-08-03 10:01] VITALS: BP 150/92
--- NOTE | 2021-08-03 18:28 | NUR ---
Raffaele was alert and oriented to self only this shift. He presented as disorganized but pleasant and cooperative upon approach. Due to his cognitive state he is unable to have a organized/substantial conversation but he has appeared more pleasant this shift. No aggression or agitation noted this shift. No SI/HI/CHO noted this shift. He did wander a bit today but was not noted wandering into others rooms as he has done previously. He remains a low fall risk and refuses to use a walker but does ambulate independently. This evening after dinner he became a little more restless, trying to rearrange furniture requiring redirection which he responded appropraitely to. Pt did not voice any physical complaints this shift, will continue to monitor.
[2021-08-03 20:31] VITALS: BP 133/74
--- NOTE | 2021-08-04 05:12 | NUR ---
Assumed pt's care beginning of this pm shift. Pt confused, pleasant ant cooperative with care. No agitation or aggression this shift. Did not verbalize any anxiety and/or depression. Pt took meds whole with water. Pt currently in his room sleeping. Nursing to continue to monitor.
[2021-08-04 09:34] VITALS: BP 149/85; BP 149/88
[2021-08-04 10:26] VITALS: BP 149/85
--- NOTE | 2021-08-04 11:32 | NUR ---
Recommend vitamin D supplementation and updated weight
--- NOTE | 2021-08-04 15:34 | NUR ---
Raffaele was alert and oriented to self only this shift. His thought process and behavior is disorganized. He was slightly irritable this morning but was easily redirectable. He was medication and meal compliant, taking pills whole with water. He presents as easily distracted, therefore during meals he takes a while to eat and often plays with his food, but does have a fair appetite. The same occurs with medication pass, he is easily distracted, and requires encouragement at times. He denies SI/HI/CHO and behaviors have not been noted yet this shift. He has been out in the dayroom for most of the shift and has interacted with other peers at times, but in a disorganized fashion. He denied any physical symptoms this shift, will continue to monitor.
[2021-08-04 19:15] VITALS: BP 165/91
--- NOTE | 2021-08-05 01:57 | NUR ---
08-04-21 CARE TRANSFERRED 1899 OBSERVED PT SITTING IN DINGING ROOM. LATER PT AAOX1, VSS, RR EVEN AND NONLABORED ON RA. PT REPORTED WALKING ALOT TODAY AND SORE ALL OVER, BUT COULD NOT GIVE SCORE FOR PAIN. OBSERVED NO SI/HI BEHAVIORS. PT PLESANTLY CONFUSED AND COOPERATIVE. DURING MEDICATION ADMIN PT HAD NO DIFFICULTIES. LATER PT BECAME CONFUSED AND WANTED TO KNOW WHERE HIS IS, PT WAS EASILY RERIENTATED TO ENVIRONMENT AND PT WAS TAKEN TO DAY ROOM AND PT COLORING. LATER PT WENT BACK TO BED AND RESTING WITH EYES CLOSED. PT WILL CONTINUE TO BE MONITOR PER [facility].
--- NOTE | 2021-08-05 08:08 | NUR ---
RT Progress Note- Raffaele remains present in the milieu throughout each day and interacts with patients through nonsensicle conversation. Active participation in group is fairly limited as pt continues to have a short attention span and easily becomes distracted. He has not shown aggression or agitation during interactions. 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
[2021-08-05 09:57] VITALS: BP 144/84
--- NOTE | 2021-08-05 12:19 | NUR ---
08-08-2021--11:00--Zoom meeting held this date with patient. Raffaele did very well answering questions. She requested nursing update for his week and meds. Faxed to her at [facility]
[2021-08-05 14:17] VITALS: BP 117/74
[2021-08-05 15:04] VITALS: BP 121/75
[2021-08-05 19:45] VITALS: BP 126/77
[2021-08-05 20:06] VITALS: BP 126/77
--- NOTE | 2021-08-06 01:36 | NUR ---
PATIENT CARE WAS RESUMED AT 1900. HE AMBULATES AND ABLE TO COMMUNICATE SOME NEEDS. HE IS CONFUSSED. ABLE TO VERBALIZE SOME NEEDS. HE DENIES PAINS/SI/AVH/HI. TOOK HIS MED IN APPLESAUCE.WANDERS THE HALLWAYS AND VERY DIRECTIBLE.FALL PRECAUTION ON PLACE. BS ACTIVE X4 QUADS. ABD IS SOFT,FLAT AND NON TENDER. HE IS A MODERATE ASSIT WITH SOME ADLS.
--- NOTE | 2021-08-06 08:16 | NUR ---
[phone]--Call to [facility] to determine a time for DC and p/u for patient. No answer. Message left to call back with information.
--- NOTE | 2021-08-06 08:45 | NUR ---
08-06-2021--3044--Attempted call to [facility] to arrange transport and DC for Mond. Not in. Msg left to return my call. Will try again later this day if they don't call back
--- NOTE | 2021-08-06 09:11 | NUR ---
08-06-2021--909--Call ro [facility] re: a p/u time for patient on 08-09-2021-- marketing finance manager out gave me her cell number ([phone]). Called number and mailbox was full. Called back to [facility] and left my number to give to hewr today and what call was for (time to DC on Monday--08-09-2021 and transportion source).
[2021-08-06 09:32] VITALS: BP 144/75
--- NOTE | 2021-08-06 11:43 | NUR ---
PATIENT CARE ASSUMED 0700 ON 08/05/21, PATIENT ALERT AND ORIENTED X1, TOOK MEDICATION CRUSHED WITH PUDDING, LESS AGITATED, HAD A ZOOM METTING WITH THE GENETIC SUPERVISOR AND THE FACILITY WHERE HE CAME FROM, PATIENT CALM AND COOPERATIVE ALL THROUGH THE MEETING, ACTIVE BOWEL SOUND WITH SOFT ABDOMEN, LUNGS CLEAR, PATIENT AMBULATE ON A WALKER, INCONTINENT AT NIGHT, DENIES SI/HI AND PAIN, FALL PRECAUTION IN PLACE, WILL COINTNUE TO MONITOR FOR SAFETY AND BEHAVIOR
--- NOTE | 2021-08-06 11:50 | NUR ---
CARE ASSUMED 0700 ON 08/06/21, PATIENT SITTING IN THE COMMON AREA, ALERT TO SELF, PATIENT DID NOT EAT MUCH OF HIS MEALS, CALM AND PLEASANT WITH CARE TODAY, TOOK MEDICATION CRUSHED WITH PUDDING, NO BEHAVIOR CHANGE YET, ASSESSMENT COMPLETED, BREATH SOUND CLEAR, BOWEL SOUND ACTIVE WITH SOFT ABDOMEN, REG HR, COLOR PINK WITH BRISK CAPILLARY REFILL, NO EDEMA NOTED, PATIENT AMBULATE ON A WALKER, INCONTINENT AT NIGHT. PATIENT IS ABLE TO VERBALIZE NEEDS, FALL PRECAUTION IN PLACE.PATIENT DENIES SI/HI PAIN WILL CONTINUE TO MONITOR PATIENT FOR SAFETY AND BEHAVIOR.
[2021-08-06 20:00] VITALS: BP 131/67
--- NOTE | 2021-08-07 02:25 | NUR ---
At onset of shift supervisor pt was in bed sleeping. This shift pt was alert and only oriented to self. RN attempted to administer pt's PO meds while pt was resting in bed. Pt was arousable, but refused his PO medications. RN administered IM in place of PO. After this pt got out of bed and paced in his room and attempted to open the unit doors. Pt returned to his room and RN heard clapping noises. PT was slapping and scratching his lower legs. RN applied lotion to lower legs and pt stopped scratching. PT then returned to bed. Overall pt was slightly agitated and irritable, but was redirectable. Fall precautions are in place. Will continue to monitor.
[2021-08-07 10:17] VITALS: BP 123/63
[2021-08-07 16:16] VITALS: BP 123/63
--- NOTE | 2021-08-07 17:57 | NUR ---
Assumed care from overnight shift this am. Client was in activity area resting and watching tv. Client presented in a restless and irritable deameanor, moving chairs around and had to be redirected. When asked assessment questions, client was oriented to self only. Client denied si/hi at this time, answering "no" while eating. Client denied depression and anxiety, humming as he said no. Client did not answer question about auditory and visual hallucinations, instead looking at food when prompted. Client presented with clear lung sounds; bowel sounds present. Client denied any pain at this time. Client took medications with prompting from staff. During afternoon medication pass, client looked at medication and stated "that won't help" but still took medication from staff. Client has currently been watching tv in activity area calmly. No further concerns.
[2021-08-07 18:43] VITALS: BP 147/77
--- NOTE | 2021-08-07 19:11 | NUR ---
NURSES NOTES AND ASSESSMENTS REVIEWED BY LUIS DANIEL SPENCE
[2021-08-07 19:54] VITALS: BP 98/51
[2021-08-07 20:54] VITALS: BP 113/63
[2021-08-07 21:54] VITALS: BP 112/55
--- NOTE | 2021-08-08 03:30 | NUR ---
Assumed care of patient at 1900. Pt calm et cooperative this shift. Pt had a fall just before the start of this shift. Neuro checks performed per protocol with no abnormalities noted. VSWNL. Health assessment with no abnormalities noted at present time. Pt took medications whole without difficulty. Pt denies SI/HI/AVH at present time. Ambulates ad argenis with slightly unsteady gait. Currently resting in bed with eyes closed. Will continue to monitor per unit protocol.
[2021-08-08 10:34] VITALS: BP 134/63
[2021-08-08 13:31] VITALS: BP 134/63
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
[2021-08-08 19:45] VITALS: BP 140/84
[2021-08-08 20:45] VITALS: BP 140/84
--- NOTE | 2021-08-09 01:11 | NUR ---
PATIENT CARE WAS RESUMED AT 1900. HE IS ALERT AND WAS SITTING IN THE DINING AREA. ABLE TO COMMUNICATE SOME CONCERN. LUNGS ARE CLEAR BS ACTIVE X4 QUADS. HE IS INCONTINET OF BOWEL AND BLADDER. HE WAS REFUSING HIS MEDS AND NURSES ADMINISTAED MED IN APPLE SAUCE.NO DISCOMFORT NOTED AT THIS TIME.HE DENIES PAINS/SI/AVH/HI.
[2021-08-09] MEDS ORDERED: ASA81BEC PO (08:27)
[2021-08-09] MEDS ORDERED: TRAZODONE HCL50 MG PO (08:27)
[2021-08-09] MEDS ORDERED: SYNTHROID112 MC1 PO (08:27)
[2021-08-09] MEDS ORDERED: KLOR-CON 1010 MEQ PO (08:27)
[2021-08-09] MEDS ORDERED: METOPROLOL SUCC50 MG PO (08:27)
[2021-08-09] MEDS ORDERED: PEPCID20 MG PO (08:27)
[2021-08-09] MEDS ORDERED: CHLORPROMAZINE25 M3 PO ×2 (08:27)
--- NOTE | 2021-08-09 08:47 | NUR ---
08-09-2021--0845--Discharge completed and faxed to [facility].
--- NOTE | 2021-08-09 09:24 | NUR ---
RESUMMED CARE FROM OVERNIGHT THIS AM, PATIENT IN ROOM LYING QUIET. PATIENT ALERT ORIENTED TO SELF ONLY, PATIENT UNABLE TO TELL ME ABOUT SI/HI/AH/VH AT PRESENT. 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 PATIENTS LUNGS CLEAR PATIENT CALM COOPERATIVE PATIENT IS DISCHARGING TO [facility]. PATIENTS DISCHARGE INSTRUCTIONS SENT WITH PATIENT AND BELONGINGS. I CALLED REPORT TO FACILITY PATIENT WALKED DOWN AND WAS PLACED IN TRANSPORT VAN.
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
== END 2021-08-09 08:45 | DRG 57 ==
LOC: SBH 12:24
PROVIDERS: Hospitalist; Internal Medicine; ADMIT Psychiatry & Neurology Psychiatry; ATTEND Psychiatry & Neurology Psychiatry
DX: G30.9 Alzheimer's disease, unspecified (principal); F02.81 Dementia in other diseases classified elsewhere, unspecified severity, with behavioral disturbance; I11.0 Hypertensive heart disease with heart failure; E87.0 Hyperosmolality and hypernatremia; F01.51 Vascular dementia, unspecified severity, with behavioral disturbance; I42.9 Cardiomyopathy, unspecified; I50.9 Heart failure, unspecified; Z20.822 Contact with and (suspected) exposure to COVID-19; I48.91 Unspecified atrial fibrillation; K21.9 Gastro-esophageal reflux disease without esophagitis; E78.5 Hyperlipidemia, unspecified; E03.9 Hypothyroidism, unspecified; Z79.82 Long term (current) use of aspirin; Z79.899 Other long term (current) drug therapy; Z95.0 Presence of cardiac pacemaker; Z23 Encounter for immunization
CPT/HCPCS: 10880